=== PATIENT | female | born 1965 | race African-American/Black ===

== ENCOUNTER 2017-07-03 19:21 | Emergency (ER) | payer OTHER, MEDICAID ==
[~2017-07-03] VITALS: Ht 157.5 cm; Wt 87.0 kg
[~2017-07-03 19:21] MED LIST: CAPT100T2; CLIN300C11; DOXY100C2; HYDR25TA; HYDRAPAP; IBUP-2029
[2017-07-03] MEDS ORDERED: CLINDAMYCIN HCL 150MG CAPSULE PO ONE (22:45)
[2017-07-03] MEDS ORDERED: CEPHALEXIN 500MG CAPSULE PO ONE (22:45)
[2017-07-03 23:04] LABS: BASOPHILS % 0.2 % (0.0-2.0); EOSINOPHILS % 0.2 % (0.0-5.0); HEMATOCRIT. 35.7 % (36.0-48.0); LYMPHOCYTES % 9.2 % (20.0-50.0); MEAN CORPUSCULAR HEMOGLOBIN 29.3 pg (28.0-32.0); MEAN CORPUSCULAR VOLUME 87.2 fL (81.0-99.0); MONOCYTES % 3.2 % (2.0-8.0); NEUTROPHILS % 87.2 % (40.0-76.0); PLATELET 193 x1000/uL (130-400); RED CELL DISTRIBUTION WIDTH 13.7 % (11.6-14.6)
[2017-07-03] MEDS ORDERED: DOXYCYCLINE HYCLATE 100MG CAPSULE PO ONE (23:15)
[2017-07-04 02:22] VITALS: BP 112/68
== END 2017-07-04 02:24 | disposition home or self-care (01) ==
LOC: ER 19:21
DX: L03.115 Cellulitis of right lower limb (principal); I10 Essential (primary) hypertension; G80.9 Cerebral palsy, unspecified; M19.90 Unspecified osteoarthritis, unspecified site; Z90.710 Acquired absence of both cervix and uterus; Z88.3 Allergy status to other anti-infective agents; Z88.2 Allergy status to sulfonamides
CPT/HCPCS: 36415; 85025; 93971; 99285